=== PATIENT | female | born 1930 | race Caucasian/White ===

== ENCOUNTER 2018-06-17 18:41 | Inpatient (IN) | payer MEDICARE, BC ==
[~2018-06-17] VITALS: Ht 162.6 cm; Wt 77.1 kg
[~2018-06-17 18:41] MED LIST: CARDIZEM120 MG PO; CELEBREX 200MG200 MG PO; CELEXA40 MG PO; LAXATIVE FOR WOM5 MG PO; MULTI VITAMINS1 TAB PO; NORCO 325 MG-51 TAB PO; OSCAL 500 TAB500 MG PO; PRIL40 PO; RESTORIL30 MG PO; SYNTHROID0.1 MG/TAB PO; WELLBUTRIN SR150 M1 PO; XANAX .25M0.25 MG/TA PO; ZOCOR 20MG20 MG PO
[2018-06-17] MEDS ORDERED: PRAVACHOL 20MG20 MG PO (20:13)
[2018-06-17] MEDS ORDERED: NORCO 325 MG-7.1 TAB PO (20:15)
[2018-06-17] MEDS ORDERED: NORCO 325 MG-101 TAB PO (20:16)
[2018-06-17] MEDS ORDERED: TUMS500 MG PO (20:19)
[2018-06-17 20:34] VITALS: BP 154/78; PULSE 84; TEMP 98.6
--- NOTE | 2018-06-17 20:38 | NUR ---
Pt. arrived to the floor via stretcher with EMS. Pt. is able to transfer to bed with a 1 assist. Pt. is A&OX3, assessment complete. INT to lt. ac patent. Pt. reports back pain at an 8 at this time. Pt. denies further needs, call light within reach.
[2018-06-17 21:39] LABS: GASTROCCULT NEGATIVE; pH GASTRIC CONTENTS 3
[2018-06-18 00:52] VITALS: BP 176/77; PULSE 66; TEMP 98.6
[2018-06-18 05:39] VITALS: BP 151/94; PULSE 69; TEMP 97.7
[2018-06-18 05:58] LABS: BASO # 0.1 (0.0-0.2); BASO % 0.4 % (0.0-2.0); EOS # 0.2 (0.0-0.7); EOS % 1.2 % (0-4.0); GRAN # 9.6 (1.4-6.5); HEMATOCRIT 39.4 % (37.0-47.0); LYMPH # 1.4 (1.2-3.4); LYMPH % 11.1 % (20.0-51.0); MEAN CELL VOLUME 92 fl (80.0-100.0); MEAN CORPUSCULAR HEMOGLOBIN 30 pg (27.0-31.0); MEAN CORPUSCULAR HGB CONC 33 g/dl (33.0-37.0); MEAN PLATELET VOLUME 9.9 fl (7.4-10.4); MONO # 1.1 (0.1-0.6); PLATELET COUNT 228 K/mm3 (130-400); RED BLOOD COUNT 4.28 M/mm3 (4.10-5.30)
[2018-06-18 06:13] LABS: ALBUMIN 3.3 gm/dL (3.5-5.0); BILIRUBIN,TOTAL 0.6 mg/dL (0.0-1.0); CALCIUM 8.6 mg/dL (8.4-10.2); CREATININE, serum 0.61 mg/dL (0.52-1.25); TOTAL PROTEIN 6.1 gm/dL (6.4-8.2)
[2018-06-18 06:17] LABS: POTASSIUM 3.7 mmol/L (3.4-5.0)
[2018-06-18 06:39] LABS: THYROID STIMULATING HORMONE 1.72 uIU/mL (0.465-4.680)
[2018-06-18 07:30] VITALS: BP 152/64; PULSE 66; TEMP 98.6
--- NOTE | 2018-06-18 07:30 | NUR ---
Assessment complete. IV in L antecubital. NS running 100 ml/hr. NG tube out of L nares on LIS. Scant yellow/lopez drainage. Pt reports no pain when laying. 4/10 pain in lower right abd on palpation with hypoactive bowel sounds . Abd soft and round. Pt ambulates to bedside commode with assist. Tele leads in place. VSS. Irregular apical heart rate d/t afib. Pt in good spirits. Bed left in semi fowlers in lowest position. Call light in reach.
--- NOTE | 2018-06-18 08:41 | NUR ---
Patient alert & oriented. Denies pain at this time. Patient up to bedside commode & voided. Patient now sitting up in chair. She was steady on her feet. Denies nausea. Ng tube to LIS per orders. Patient IS NPO, assisted with oral care & mouth swabs provided. Will monitor
--- NOTE | 2018-06-18 10:00 | NUR ---
checked on pt. assisted to bed. pt states after night of restlessness she hopes to get a nap. bed left in semi fowlers, lowest position. Call light in reach.
--- NOTE | 2018-06-18 11:09 | NUR ---
Patient resting in bed. SHe worked with therapy this am. Hospitalist team rounded. She continues to do well with minimal complaints.
--- NOTE | 2018-06-18 11:20 | NUR ---
VSS. pt reports feelings of restlessness. Reported to Nurse Magdalene RN. Pt left resting in bed. Bed in lowest position. Call light in reach. Daughter at bedside. Reported off to Nurse Magdalene RN.
--- NOTE | 2018-06-18 11:23 | NUR ---
SW attended clinical rounds to discuss discharge planning. Patient lives at [facility]. Patient's PCP is Dr Sorensen and she obtains prescriptions from [facility] in [place]. Patient does not use any home health services or DME in the home. Patient reports she does have a DPOA. SW does not anticipate any discharge needs.
--- NOTE | 2018-06-18 11:27 | NUR ---
Patient reports feeling anxious, she is used to taking her xanax. Hospitalist team notifed & they will look into another dose of ativan. Patient reports Ativan helped at 3am. Will monitor.
[2018-06-18 11:29] VITALS: BP 174/84; PULSE 70; TEMP 98.6
--- NOTE | 2018-06-18 12:56 | NUR ---
Patient assisted to bedside commode. She voided. She reports elevated nausea & abdominal pain. Patient is feeling more anxious. Reports claustrophobia, request door be left open. Patient medicated with Ativan per orders & she is already feeling relief. Patient gien PRN dose of ZOfran & NG tube adjusted & irrigated, nothing obtained with irrigation. Patient going to try & rest, reports minimal sleep over night. Will monitor.
[2018-06-18 15:36] VITALS: BP 137/72; PULSE 80; TEMP 98.4
--- NOTE | 2018-06-18 19:57 | NUR ---
Patient has rested well this afternoon. Anxiety comtrolled at this time. Patient up to the bedside commode again & did well voided. Denies nausea & even reports passing flatus x2. Patient denies abdominal pain, but complaints of back pain, dilaudid Iv per orders. Tele on Vss. Lopressor per orders. Bedside report to Dmitriy HUI
[2018-06-18 20:59] VITALS: BP 151/67; PULSE 57; TEMP 99.5
--- NOTE | 2018-06-18 21:40 | NUR ---
Pt in bed resting, napping, shift assessments complete, left Pt call light in reach, bed in lowest position.
[2018-06-19 00:23] VITALS: BP 155/83; PULSE 77; TEMP 99.3
[2018-06-19 03:48] VITALS: BP 157/65; PULSE 57; TEMP 98
--- NOTE | 2018-06-19 05:26 | NUR ---
Pt slept during the night, she was up several times to void using the bedside commode with assistance, she did have some C/O pain and medications were administered, VS have remained stable.
[2018-06-19 07:45] VITALS: BP 151/61; PULSE 70; TEMP 98
--- NOTE | 2018-06-19 07:45 | NUR ---
Assessment complete. VSS. Reports no pain at rest. 4/10 pain on abd palpation. Bowel sounds hypoactive all 4 quadrants. INT in L antecubital. No pain or redness at site. NG tube in left nares on LIS. States she is "protective" of tube d/t fear of it coming out. Minimal green contents consistently being suctioned. Reports no pain or discomfort with tube. Bilateral lower lobes contain crackles on auscultation. Irregular heartbeat d/t afib. NG tube leaked over night. Reconnected and fresh bedding and gown provided. Assisted to commode and voided 100 ml clear yellow urine. Pt assisted to chair and left resting comfortably. Call light in reach.
--- NOTE | 2018-06-19 08:45 | NUR ---
NG tube clamped by EZ Vasques per doctors orders. Pt ordered CLD tray to try. Will check back for comfort and monitor for nausea. Call light left in reach.
[2018-06-19 08:52] LABS: BASO # 0.1 (0.0-0.2); BASO % 0.4 % (0.0-2.0); EOS # 0.2 (0.0-0.7); EOS % 1.3 % (0-4.0); GRAN # 9.5 (1.4-6.5); GRAN % 79.8 % (42.2-75.2); HEMATOCRIT 42.1 % (37.0-47.0); HEMOGLOBIN 13.9 g/dl (12.5-16.0); LYMPH # 1.2 (1.2-3.4); LYMPH % 10.3 % (20.0-51.0); MEAN CELL VOLUME 92 fl (80.0-100.0); MEAN CORPUSCULAR HEMOGLOBIN 30 pg (27.0-31.0); MEAN CORPUSCULAR HGB CONC 33 g/dl (33.0-37.0); MEAN PLATELET VOLUME 9.6 fl (7.4-10.4); MONO # 0.9 (0.1-0.6); MONO % 7.9 % (1.7-9.3); PLATELET COUNT 224 K/mm3 (130-400); RED BLOOD COUNT 4.58 M/mm3 (4.10-5.30); REDCELL DISTRIBUTION WIDTH-CV 13.9 % (11.5-14.5)
[2018-06-19 09:11] LABS: CALCIUM 8.9 mg/dL (8.4-10.2); CREATININE, serum 0.65 mg/dL (0.52-1.25); MAGNESIUM 1.8 mg/dL (1.6-2.3); PHOSPHOROUS 3.6 mg/dL (2.5-4.5); POTASSIUM 3.7 mmol/L (3.4-5.0)
--- NOTE | 2018-06-19 09:45 | NUR ---
Assisted to bedside commode and voided 100 ml. States it "feels good" to get up and move. Assisted with stefani care and returned to chair. Call light left in reach.
[2018-06-19 11:18] VITALS: BP 155/76; PULSE 68; TEMP 98.2
--- NOTE | 2018-06-19 11:20 | NUR ---
Assisted to walk hallway 5 min. Assisted back into bed. Requested ice water. Daughter at bedside. VSS. Reported off to Nurse EZ Del Castillo.
--- NOTE | 2018-06-19 11:54 | NUR ---
Patient sitting up in chair. She has done well. She is tolerating Ng tube being clamped. Tolerating clears. Denies pain. Anxiety managed at this time. Student nurse worked with patient & Melba Reina orientee. Agree with Melba Reinamedicinal plant picker. Vss, tele on. [place].
--- NOTE | 2018-06-19 12:16 | NUR ---
12f ng TUBE REMOVED AT THISTIME FROM LEFT NARE. TOLERATED WELL
[2018-06-19 16:39] VITALS: BP 159/72; PULSE 79; TEMP 98.1
--- NOTE | 2018-06-19 19:37 | NUR ---
Patient resting in bed. She has had a good day. Diet progressed to full liquids & she tolerated dinner well. Iv to Int. She continues to be up and down to the bathroom frequently & per her reports this is her normal. Patient has not had a BM, but is passing flatus & feels close to having a BM. Dr. Everett was notifed & orders were obtained & medications given per orders. Patient remains on Tele Vss & home cardizem dose was resumed per orders. Report given to Kathryn HUI
--- NOTE | 2018-06-19 20:50 | NUR ---
Patient awakened for HS meds. Is alert and oriented x3, is hard of hearing. Denies pain and reports passing flatus, no BM. Assisted to bathroom where she voids and back to bed without BM. Abdomen soft, bowel sounds active. SL to LAC without redness or swelling. Telemetry with sinus rhythm showing.
[2018-06-19 21:35] VITALS: BP 124/58; PULSE 58; TEMP 99.7
--- NOTE | 2018-06-19 23:57 | NUR ---
Patient asks for "something to make me less anxious". Medicated with IV Ativan 0.5mg SIVP at this time. Previously up to bathroom and voided only. Will monitor for changes.
[2018-06-20 00:20] VITALS: BP 136/51; PULSE 76; TEMP 98.3
--- NOTE | 2018-06-20 00:30 | NUR ---
Patient resting quietly in bed with eyes closed.
[2018-06-20 03:42] VITALS: BP 157/58; PULSE 78; TEMP 98.7
--- NOTE | 2018-06-20 03:43 | NUR ---
Assisted to bathroom, passes gas and voids only. Back to bed. VSS.
--- NOTE | 2018-06-20 05:17 | NUR ---
Patient up to bathroom, digital check done of rectum, revealed soft stool. Patient voids and has small soft stool at this time. Back to bed with supervision.
--- NOTE | 2018-06-20 06:35 | NUR ---
Medicated with Lortab 7.5mg 1 tab for back pain. Coffee given per patient request.
--- NOTE | 2018-06-20 08:00 | NUR ---
PATIENT AMBULATING INDEPENDENTLY WITHIN ROOM THIS MORNING. PATIENT IS A&O. IRREGULAR HEART RHYTHM WITH REGULAR RATE NOTED, OTHERWISE VSS. TELE IN PLACE. UPPER LUNG LOBES CLEAR UPON AUSCULTATION. COARSE CRACKLES AUSCULTATED OVER LUNG BASES BILATERALLY. PATIENT DENIES SHORTNESS OF BREATH OR A PRODUCTIVE COUGH. BOWEL SOUNDS ACTIVE ALL FOUR QUADRANTS. PATIENT TOLERATING FULL LIQUIDS WITHOUT ANY COMPLAINTS OF N/V. PATIENT PASSING FLATUS AND REPORTS HAVING A SMALL BOWEL MOVEMENT THIS MORNING. LEFT AC TO INT. CALL LIGHT WITHIN REACH. PATIENT DENIES ANY OTHER NEEDS AT THIS TIME.
[2018-06-20 08:09] VITALS: BP 149/89; PULSE 78; TEMP 98.6
[2018-06-20 08:11] LABS: BASO % 0.3 % (0.0-2.0); EOS # 0.2 (0.0-0.7); EOS % 1.8 % (0-4.0); GRAN # 7.3 (1.4-6.5); GRAN % 75.3 % (42.2-75.2); HEMATOCRIT 39.1 % (37.0-47.0); HEMOGLOBIN 13.1 g/dl (12.5-16.0); LYMPH # 1.2 (1.2-3.4); LYMPH % 12.6 % (20.0-51.0); MEAN CELL VOLUME 90 fl (80.0-100.0); MEAN CORPUSCULAR HEMOGLOBIN 30 pg (27.0-31.0); MEAN CORPUSCULAR HGB CONC 34 g/dl (33.0-37.0); MEAN PLATELET VOLUME 10.1 fl (7.4-10.4); MONO % 9.8 % (1.7-9.3); PLATELET COUNT 218 K/mm3 (130-400); RED BLOOD COUNT 4.36 M/mm3 (4.10-5.30); REDCELL DISTRIBUTION WIDTH-CV 13.8 % (11.5-14.5)
[2018-06-20 08:14] LABS: CALCIUM 8.6 mg/dL (8.4-10.2); CREATININE, serum 0.65 mg/dL (0.52-1.25); POTASSIUM 3.1 mmol/L (3.4-5.0)
[2018-06-20] MEDS ORDERED: COLACE 100100 MG/CAP PO (09:40)
[2018-06-20] MEDS ORDERED: SENNA-LAX8.6 MG PO (09:40)
[2018-06-20] MEDS ORDERED: MIRALAX PA17 GM/Dose PO (09:40)
--- NOTE | 2018-06-20 10:09 | NUR ---
JEFF and JEFF student attended clinical rounds. The patient is to discharge back home today, 06/20, to her independent living apartment at [place]. JEFF attempted to contact Zoya at [place] to update. JEFF left a voicemail. Transportation to be by private care, via the patient's son. JEFF presented and explained the IM form to the patient and patient's son. The patient verbalized understanding, signed, and she was provided a copy. No additional needs at this time.
--- NOTE | 2018-06-20 10:55 | NUR ---
Pt. VSS, small BM this am. Pt. still c/o needing to have a BM. Pt. walked with PT around the surgical floor. No complaints of pain at this time. Call light in reach.
--- NOTE | 2018-06-20 11:16 | NUR ---
This nurse DC'd INT to left AC. Pt. tolerated procedure well, tip intact 2.2 gauze applied with clear, medical tape.
--- NOTE | 2018-06-20 12:05 | NUR ---
DISCHARGE INSTRUCTIONS REVIEWED WITH PATIENT AND SON. ALL QUESTIONS ANSWERED. PATIENT PERSONAL BELONGINGS GATHERED. PATIENT TAKEN TO PERSONAL VEHICAL VIA WHEELCHAIR BY SURGICAL STAFF. PATIENT DISCHARGED.
--- NOTE | 2018-06-20 12:19 | NUR ---
First visit from the medical technologist. No needs right now.
== END 2018-06-20 12:05 | disposition home or self-care (01) | DRG 390 ==
LOC: MEDICAL 18:41 → SURG 20:07 → MEDICAL 20:07 → SURG 06-20 12:05
PROVIDERS: Nurse Practitioner Family; Physician Assistant; Surgery
DX: K56.51 Intestinal adhesions [bands], with partial obstruction (principal); Z66 Do not resuscitate; I48.0 Paroxysmal atrial fibrillation; Z87.891 Personal history of nicotine dependence; E78.5 Hyperlipidemia, unspecified; F41.8 Other specified anxiety disorders; E03.9 Hypothyroidism, unspecified; Z85.030 Personal history of malignant carcinoid tumor of large intestine; G89.29 Other chronic pain; M54.9 Dorsalgia, unspecified
CPT/HCPCS: 99223-AI; 99239; C9113; J1170; J1644; J2060; J2270; J2405; J7030; J7120; Q9967